=== PATIENT | male | born 1955 | race Caucasian/White ===

== ENCOUNTER 2018-04-23 15:27 | Emergency (ER) | payer BC ==
[2018-04-23 15:44] VITALS: BP 130/80
[2018-04-23] MEDS ORDERED: LIDOCAINE 5% (700 MG) TRANSDERMAL ADH..PATCH TP ONE (16:19)
--- NOTE | 2018-04-23 16:22 | ER Document Report ---
ED General - General Chief Complaint: Back Pain Stated Complaint: BACK PAIN Time Seen by Provider: 04/23/18 16:19 Primary Care Provider: IDA BRO MD [Primary Care Provider] - Follow up as needed Mode of Arrival: Ambulatory Information source: Patient TRAVEL OUTSIDE OF THE [place] IN LAST 30 DAYS: No - HPI Onset: Last week Onset/Duration: Sudden Quality of pain: Sharp Severity: Severe Associated symptoms: None Exacerbated by: Movement Similar symptoms previously: Yes Recently seen / treated by doctor: Yes Notes: 63-year-old male coming in today with left-sided low back pain and left-sided upper back pain after lifting later. Already had x-rays done as an outpatient which were negative. Continues to have pain that keeps him awake at night. Denies bladder bowel dysfunction. Denies saddle anesthesia. Denies focal weakness. Denies urinary symptoms. - Related Data Allergies/Adverse Reactions: trazodone Allergy (Verified 04/23/18 16:26) Past Medical History - General Information source: Patient - Social History Smoking Status: Unknown if Ever Smoked Family History: Reviewed & Not Pertinent - Past Medical History Cardiac Medical History: Reports: Hx Hypercholesterolemia, Hx Hypertension Denies: Hx Coronary Artery Disease, Hx Heart Attack Pulmonary Medical History: Denies: Hx Asthma, Hx Bronchitis, Hx COPD, Hx Pneumonia Neurological Medical History: Denies: Hx Cerebrovascular Accident, Hx Seizures Past Surgical History: Reports: Hx Genitourinary Surgery - Immunizations Hx Diphtheria, Pertussis, Tetanus Vaccination: Yes Review of Systems - Review of Systems Constitutional: No symptoms reported EENT: No symptoms reported Cardiovascular: No symptoms reported Respiratory: No symptoms reported Gastrointestinal: No symptoms reported Genitourinary: No symptoms reported Male Genitourinary: No symptoms reported Musculoskeletal: Back pain Skin: No symptoms reported Hematologic/Lymphatic: No symptoms reported Neurological/Psychological: No symptoms reported Physical Exam - Vital signs Vitals: Temp Pulse Resp BP Pulse Ox 98.6 F 52 L 18 130/80 H 94 04/23/18 15:42 04/23/18 15:42 04/23/18 15:42 04/23/18 15:42 04/23/18 15:42 - General General appearance: Appears well - HEENT Head: Normocephalic, Atraumatic - Respiratory Respiratory status: No respiratory distress Chest status: Nontender Breath sounds: Normal - Cardiovascular Rhythm: Regular Heart sounds: Normal auscultation Murmur: No - Abdominal Inspection: Normal Distension: No distension Bowel sounds: Normal Tenderness: Nontender - Back Back: Other - Left paralumbar and left parathoracic tenderness. No midline tenderness or step-off. - Extremities Notes: Atraumatic. Moves all extremities well. - Skin Skin Temperature: Warm Skin Moisture: Dry Skin Color: Normal Course - Vital Signs Vital signs: Temp Pulse Resp BP Pulse Ox 98.6 F 52 L 18 130/80 H 94 04/23/18 15:42 04/23/18 15:42 04/23/18 15:42 04/23/18 15:42 04/23/18 15:42 Discharge - Discharge Clinical Impression: Lumbar strain Qualifiers: Encounter type: initial encounter Qualified Code(s): S39.012A - Strain of muscle, fascia and tendon of lower back, initial encounter Strain of thoracic region Qualifiers: Encounter type: initial encounter Qualified Code(s): S29.019A - Strain of muscle and tendon of unspecified wall of thorax, initial encounter Condition: Good Disposition: HOME, SELF-CARE Instructions: Ice Packs ([facility]), Low Back Pain ([facility]), Muscle Strain ([facility]), Oral Narcotic Medication ([facility]) Prescriptions: Tramadol HCl [Ultram 50 mg Tablet] 50 mg PO Q6HP PRN #12 tablet PRN Reason: Forms: Return to Work Referrals: IDA BRO MD [Primary Care Provider] - Follow up as needed
--- NOTE | 2018-04-23 16:27 | ER Document Report ---
ED Medical Screen (RME) - General Chief Complaint: Back Pain Stated Complaint: BACK PAIN Time Seen by Provider: 04/23/18 16:19 Primary Care Provider: IDA BRO MD [Primary Care Provider] - Follow up as needed Mode of Arrival: Ambulatory Information source: Patient TRAVEL OUTSIDE OF THE [place] IN LAST 30 DAYS: No - HPI Patient complains to provider of: Low back pain, upper back pain Onset: Last week Onset/Duration: Sudden Quality of pain: Sharp Severity: Moderate Associated Symptoms: None Exacerbated by: Movement, Walking Relieved by: Other - Partial improvement with Toradol and Flexeril Similar symptoms previously: Yes Recently seen / treated by doctor: Yes - Plain films were done in the past week and were negative per patient Notes: 04/23/18 16:26 Patient is a 63-year-old male coming in today with chief complaint left lower back pain and left upper back pain. Symptoms have been present since last week. Patient reports symptoms started after lifting a heavy bag of kidney later. He was seen the past couple of days in a walk-in clinic because his primary doctor's office was closed. He had plain x-rays done. These were negative by his report. Denies bladder bowel dysfunction. Denies saddle anesthesia. Denies focal weakness. Denies urinary symptoms. He was given prescriptions for Toradol and Flexeril. Patient reports some minor relief from the Toradol but states the Flexeril only makes him sleepy. Still having a fair amount of discomfort not resolved by Toradol alone. States that the walk-in clinic advised him to come to the ED for further treatment. - Related Data Smoking: Non-smoker Allergies/Adverse Reactions: No Known Allergies Allergy (Verified 03/04/16 09:24) Past Medical History - General Information source: Patient - Past Medical History Cardiac Medical History: Reports: Hx Hypercholesterolemia, Hx Hypertension Denies: Hx Coronary Artery Disease, Hx Heart Attack Pulmonary Medical History: Denies: Hx Asthma, Hx Bronchitis, Hx COPD, Hx Pneumonia Neurological Medical History: Denies: Hx Cerebrovascular Accident, Hx Seizures Past Surgical History: Reports: Hx Genitourinary Surgery - Immunizations Hx Diphtheria, Pertussis, Tetanus Vaccination: Yes Review of Systems - Review of Systems Constitutional: denies: Chills, Fever EENT: No symptoms reported Cardiovascular: No symptoms reported Respiratory: No symptoms reported Gastrointestinal: denies: Abdominal pain, Diarrhea, Nausea, Vomiting, Constipation Musculoskeletal: Back pain Skin: No symptoms reported Hematologic/Lymphatic: No symptoms reported Neurological/Psychological: No symptoms reported -: Yes All other systems reviewed and negative Physical Exam - Vital signs Vitals: Temp Pulse Resp BP Pulse Ox 98.6 F 52 L 18 130/80 H 94 04/23/18 15:42 04/23/18 15:42 04/23/18 15:42 04/23/18 15:42 04/23/18 15:42 - General General appearance: Appears well In distress: None - HEENT Head: Normocephalic, Atraumatic - Respiratory Respiratory status: No respiratory distress - Cardiovascular Rhythm: Regular Heart sounds: Normal auscultation - Abdominal Inspection: Normal Distension: No distension Bowel sounds: Normal Tenderness: Nontender - Back Back: Other - Left paralumbar tenderness, left parathoracic tenderness. No mi dline tenderness or step-off - Extremities Notes: Moves all extremities well. Atraumatic. - Neurological Neuro grossly intact: Yes - Skin Skin Temperature: Warm Skin Moisture: Dry Course - Re-evaluation Re-evalutation: 04/23/18 16:29 We will have the patient continue the Toradol and Flexeril. I looked him up on the [place] controlled substances website. Nothing concerning for abuse. Will write a very brief prescription for Ultram 50 mg 1 tab every 6 hours as needed moderate to severe pain dispensed #12. - Vital Signs Vital signs: Temp Pulse Resp BP Pulse Ox 98.6 F 52 L 18 130/80 H 94 04/23/18 15:42 04/23/18 15:42 04/23/18 15:42 04/23/18 15:42 04/23/18 15:42 Doctor's Discharge - Discharge Clinical Impression: Lumbar strain Qualifiers: Encounter type: initial encounter Qualified Code(s): S39.012A - Strain of muscle, fascia and tendon of lower back, initial encounter Strain of thoracic region Qualifiers: Encounter type: initial encounter Qualified Code(s): S29.019A - Strain of muscle and tendon of unspecified wall of thorax, initial encounter Condition: Good Disposition: HOME, SELF-CARE Instructions: Ice Packs ([facility]), Low Back Pain ([facility]), Muscle Strain ([facility]), Oral Narcotic Medication ([facility]) Prescriptions: Tramadol HCl [Ultram 50 mg Tablet] 50 mg PO Q6HP PRN #12 tablet PRN Reason: Referrals: IDA BRO MD [Primary Care Provider] - Follow up as needed
== END 2018-04-23 16:46 | disposition home or self-care (01) ==
LOC: ER 15:27
DX: S39.012A Strain of muscle, fascia and tendon of lower back, initial encounter (principal); S29.012A Strain of muscle and tendon of back wall of thorax, initial encounter; X50.0XXA Overexertion from strenuous movement or load, initial encounter; I10 Essential (primary) hypertension
CPT/HCPCS: 99283

== ENCOUNTER 2018-05-10 13:51 | Emergency (ER) | payer BC ==
[2018-05-10] MEDS ORDERED: NORMAL SALINE 1000 ML 1,000 ML IV ONE (15:39)
[2018-05-10] MEDS ORDERED: KETOROLAC TROMETHAMINE INJ/PF 30 MG/1 ML SDV IV ONE (15:39)
[2018-05-10] MEDS ORDERED: DEXAMETHASONE SOD PHOS INJ 10 MG/1 ML VIAL IV ONE (15:39)
[2018-05-10] MEDS ORDERED: METOCLOPRAMIDE HCL INJ/PF 10 MG/2 ML SDV IV ONE (15:39)
[2018-05-10] MEDS ORDERED: MAGNESIUM SULFATE/D5W 1 GM/100 ML RTUPB IV ONE (15:40)
--- NOTE | 2018-05-10 17:10 | ER Document Report ---
ED General - General Chief Complaint: Headache Stated Complaint: HEADACHE Time Seen by Provider: 05/10/18 15:33 Primary Care Provider: IDA BRO MD [Primary Care Provider] - Follow up as needed Notes: Patient is a 63-year-old male with history of chronic migraines that presents to the emergency department for chief complaint of left-sided headache. Patient reports that this headache started earlier this evening, and is typical of his usual migraines are on the left side of his head, he said mild photophobia associated, he did try to take Phenergan and Toradol at home, but had an episode of vomiting immediately after. He has had some sinus pressure and drainage as well, that he thinks may have triggered the headache. He denies any numbness, weakness or tingling in any extremity, denies slurred speech or changes in his vision, he also denies having any recent fevers, chills, night sweats, neck stiffness, chest pain, shortness of breath, abdominal pain, dysuria or hematuria. Currently rates his headache as a 7 out of 10 describes as a constant aching sensation, just above the left orbit. Past Medical History: Migraine headaches, hypertension, anxiety Past Surgical History: Cataract surgery, bladder resection Social History: Denies tobacco, alcohol or drug use. Family History: Reviewed and noncontributory for presenting illness Allergies: Reviewed, see documented allergy list. REVIEW OF SYSTEMS: Other than noted above, the 12 point review of systems was reviewed with the patient and were negative, all pertinent findings are included in the HPI. PHYSICAL EXAMINATION: Vital signs reviewed, nursing noted reviewed. GENERAL: Well-appearing, well-nourished and in no acute distress. HEAD: Atraumatic, normocephalic. EYES: Eyes appear normal, extraocular movements intact, sclera anicteric, conjunctiva are normal. PERRLA ENT: nares patent, oropharynx clear without exudates. Moist mucous membranes. Sinuses nontender to palpate NECK: Normal range of motion, supple without lymphadenopathy LUNGS: Breath sounds clear to auscultation bilaterally and equal. No wheezes rales or rhonchi. HEART: Regular rate and rhythm without murmurs ABDOMEN: Soft, nontender, normoactive bowel sounds. No rebound, guarding, or rigidity. No masses appreciated. EXTREMITIES: Nontender, good range of motion, no pitting or edema. NEUROLOGICAL: No focal neurological deficits. Moves all extremities spontaneously Motor and sensory grossly intact on exam. PSYCH: Normal mood, normal affect. SKIN: Warm, Dry, normal turgor, no rashes or lesions noted on exposed skin TRAVEL OUTSIDE OF THE [place] IN LAST 30 DAYS: No - Related Data Allergies/Adverse Reactions: trazodone Allergy (Verified 05/10/18 13:54) Past Medical History - Social History Smoking Status: Unknown if Ever Smoked Family History: Reviewed & Not Pertinent Patient has suicidal ideation: No Patient has homicidal ideation: No - Past Medical History Cardiac Medical History: Reports: Hx Hypercholesterolemia, Hx Hypertension Denies: Hx Coronary Artery Disease, Hx Heart Attack Pulmonary Medical History: Denies: Hx Asthma, Hx Bronchitis, Hx COPD, Hx Pneumonia Neurological Medical History: Denies: Hx Cerebrovascular Accident, Hx Seizures Renal/ Medical History: Denies: Hx Peritoneal Dialysis Past Surgical History: Reports: Hx Genitourinary Surgery - Immunizations Hx Diphtheria, Pertussis, Tetanus Vaccination: Yes Physical Exam - Vital signs Vitals: Temp Pulse Resp BP Pulse Ox 98.8 F 56 L 16 136/87 H 95 05/10/18 14:04 05/10/18 14:04 05/10/18 14:04 05/10/18 14:04 05/10/18 14:04 Course - Re-evaluation Re-evalutation: Patient seen and examined vital signs reviewed. Patient was evaluated and treated as appropriate for the patient's presenting symptoms and complaint, with consideration of any critical or life threatening conditions that may be associated with their obtained history and exam as noted above. Patient was treated with IV fluids, Reglan, Toradol, dexamethasone and magnesium The patient was re-evaluated and was improved, headache had completely resolved Evaluation was most consistent with headache, nonspecific, most likely migraine type, given patient history, low suspicion for life-threatening causes of headache, including subretinal hemorrhage, given presentation, similar to prior headaches, and complete resolution of headache, patient given a prescription for Fioricet to take if needed for home, also given a work note. Plan of care was discussed with the patient at this point, after careful consideration I feel that that patient can be discharged from the emergency department, the patient was educated treatments and reasons to return to the emergency department based on their presumed diagnosis as noted above, they were advised to followup with a primary care physician in 2-3 days. Patient was agreeable to plan of care. *Note is created using voice recognition software and may contain spelling, syntax or grammatical errors. - Vital Signs Vital signs: Temp Pulse Resp BP Pulse Ox 97.8 F 46 L 16 128/71 H 98 05/10/18 17:10 05/10/18 17:10 05/10/18 17:10 05/10/18 17:10 05/10/18 17:10 Discharge - Discharge Clinical Impression: Headache Qualifiers: Headache type: unspecified Headache chronicity pattern: unspecified pattern Intractability: not intractable Qualified Code(s): R51 - Headache Condition: Stable Disposition: HOME, SELF-CARE Instructions: Headache ([facility]) Prescriptions: Butalb/Acetaminophen/Caffeine [Fioricet 50-300-40 mg Capsule] 1 cap PO Q6H PRN #12 cap PRN Reason: headache Forms: Return to Work Referrals: IDA BRO MD [Primary Care Provider] - Follow up as needed
[2018-05-10 17:53] VITALS: BP 128/71
== END 2018-05-10 17:20 | disposition home or self-care (01) ==
LOC: ER 13:51
DX: R51 Headache (principal); I10 Essential (primary) hypertension; F41.9 Anxiety disorder, unspecified; E78.00 Pure hypercholesterolemia, unspecified
CPT/HCPCS: 99283; 96375; 96365; J1885; J2765; J3475; J7030; J1100

== ENCOUNTER → 2019-12-23 | Outpatient (CLI) | payer MEDICARE, BC ==
--- NOTE | 2019-12-23 16:57 | RADIOLOGY REPORT (SQ) ---
EXAM DESCRIPTION: CAROTID DOPPLER IMAGES COMPLETED DATE/TIME: 12/23/2019 3:02 pm REASON FOR STUDY: HYPERTENSIVE RETINOPATHY H34.821 VENOUS ENGORGEMENT, RIGHT EYE H35.033 HYPERTENS JO ANN RETINOPATHY, BILATERAL COMPARISON: None. TECHNIQUE: Grayscale ultrasound, Doppler velocity and spectra, and color Doppler images acquired of the extra-cranial carotid and vertebral arteries. Images stored on PACS. LIMITATIONS: None. FINDINGS: RIGHT CAROTID CCA Velocities: Within normal limits. ICA Velocities Peak systolic 90 cm/s. End diastolic 39 cm/s. Proximal ICA/CCA peak systolic ratio 0.9. Spectra normal. No significant plaque. LEFT CAROTID CCA Velocities: Within normal limits. ICA Velocities Peak systolic 83 cm/s. End diastolic 36 cm/s. Proximal ICA/CCA peak systolic ratio 0.8. Spectra normal. No significant plaque. VERTEBRAL ARTERIES: Antegrade flow. Normal waveforms. SUBCLAVIAN ARTERIES: No finding. OTHER: No other significant finding. IMPRESSION: NO HEMODYNAMICALLY SIGNIFICANT STENOSIS. COMMENT: Quality ID #[id number]: Velocity criteria are extrapolated from the diameter data as defined by t he Society of Radiologists in Ultrasound Consensus Conference. Radiology 2003: 229; 340-346. TECHNICAL DOCUMENTATION: JOB ID: [id number] [place]-72 2010 [employer]- All Rights Reserved Reading location - IP/workstation name: [employer]
== END ==
LOC: SP 13:54
PROVIDERS: ATTEND Ophthalmology
DX: H35.033 Hypertensive retinopathy, bilateral (principal); H34.821 Venous engorgement, right eye
CPT/HCPCS: 93880